=== PATIENT | female | born 2000 | race Two or more races ===

== ENCOUNTER 2024-11-07 11:59 | Emergency (ER) | payer OTHER ==
[~2024-11-07] VITALS: Ht 160 cm; Wt 63.0 kg
[2024-11-07] MEDS ORDERED: EUTHYROX75 MCG PO (12:25)
[2024-11-07 14:38] LABS: COVID-19 AG NEGATIVE (NEGATIVE); INFLUENZA A AG NEGATIVE (NEGATIVE)
== END 2024-11-07 15:54 | disposition home or self-care (01) ==
LOC: ER 13:12
PROVIDERS: General Practice
DX: B34.9 Viral infection, unspecified (principal); R50.9 Fever, unspecified; Z20.822 Contact with and (suspected) exposure to COVID-19